=== PATIENT | male | born 1960 | race Caucasian/White ===

== ENCOUNTER 2017-01-28 11:59 | Inpatient (IN) | payer OTHER ==
[2017-01-28] MEDS ORDERED: LET GEL TOPICAL 1 EA SYR TP ONE ×3 (12:08→12:13)
[2017-01-28] MEDS ORDERED: fentaNYL 100 MCG/2 ML INJ ONE (12:08)
[2017-01-28] MEDS ORDERED: ONDANSETRON 4 MG/2 ML VIAL ONE (12:09)
[2017-01-28] MEDS ORDERED: IOPAMIDOL (ISOVUE-300) 100 ML BTL ONE (12:13)
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
[2017-01-28] MEDS ORDERED: fentaNYL 100 MCG/2 ML INJ IVP ONE ×2 (12:20→12:30)
[2017-01-28] MEDS ORDERED: ONDANSETRON 4 MG/2 ML VIAL IVP ONE (12:20)
[2017-01-28 12:22] LABS: % IMMATURE GRANULYOCYTES 0.7 % (0.0-1.1); ABSOLUTE IMMATURE GRANULOCYTES 0.05 10^3/uL (0.00-0.10); ADD DIFF? NO; ADD MORPH? NO; ADD SCAN? NO; ATYPICAL LYMPHOCYTE FLAG 20 (0-99); FRAGMENT RBC FLAG 0 (0-99); HEMATOCRIT 44.8 % (40.0-51.0); HEMOGLOBIN 15.2 g/dL (13.7-17.5); LEFT SHIFT FLG 0 (0-99); LIPEMIA HEMOLYSIS FLAG 90 (0-99); MEAN CELL HEMOGLOBIN 31.4 pg (27.9-34.1); MEAN CELL HEMOGLOBIN CONCENTR. 33.9 g/dL (32.4-36.7); MEAN CELL VOLUME 92.6 fL (81.5-99.8); MEAN PLATELET VOLUME 9.4 fL (8.7-11.7); PLATELET CLUMPS FLAG 10 (0-99); PLATELET COUNT 270 10^3/uL (150-400); RED BLOOD CELL COUNT 4.84 10^6/uL (4.40-6.38); RED CELL DISTRIBUTION WIDTH 11.9 % (11.5-15.2)
[2017-01-28 12:36] LABS: ANION GAP 23 mEq/L (8-16); CALCIUM 9.4 mg/dL (8.5-10.4); CARBON DIOXIDE 13 mEq/l (22-31); CHLORIDE 105 mEq/L (97-110); CREATININE 1.1 mg/dL (0.7-1.3); GLOMERULAR FILTRATION RATE > 60; GLUCOSE 140 mg/dL (70-100); INR 1.03 (0.83-1.16); POTASSIUM 4.1 mEq/L (3.5-5.2); PROTIME(PATIENT) 13.4 SEC (12.0-15.0); SODIUM 141 mEq/L (134-144)
[2017-01-28 12:37] LABS: APTT 24.9 SEC (23.0-38.0)
[2017-01-28] MEDS ORDERED: ceFAZolin 2 GM in NS 100 ML IV ONE (13:26)
[2017-01-28] MEDS ORDERED: DIPH,PERTUSS(ACELL),TET PED/PF 0.5 ML VIAL IM ONE (13:27)
[2017-01-28] MEDS ORDERED: PANTOPRAZOLE SODIUM 40 MG in NS 100 ML IV ONE (13:27)
[2017-01-28] MEDS ORDERED: ONDANSETRON 4 MG/2 ML VIAL IVP PRN (13:40)
[2017-01-28] MEDS ORDERED: HYDROmorphONE/DILAUDID 1 MG/ML SYR IVP ONE (13:40)
[2017-01-28] MEDS ORDERED: NALOXONE HCL 0.4 MG/ML INJ IVP PRN (13:40)
[2017-01-28] MEDS ORDERED: LR 1,000 ML IV SCH (14:00)
[2017-01-28] MEDS ORDERED: TDAP ADULT 0.5 ML INJ (BOOSTRIX) IM ONE ×2 (14:02→14:10)
[2017-01-28] MEDS ORDERED: HYDROmorphONE/DILAUDID 1 MG/ML SYR ONE (14:10)
[2017-01-28] MEDS: HYDROmorphONE/DILAUDID 1 MG/ML SYR IVP PRN ×3 (14:17→20:27)
[2017-01-28] MEDS: ceFAZolin 2 GM/DEXTROSE 100 ML IV SCH ×2 (15:06→23:27)
[2017-01-28] MEDS: BACITRACIN/POLYMYXIN B SULFATE 28.3 GM TUBE TP SCH (16:35)
[2017-01-28] MEDS: LIDOCAINE 5% 1 EA PATCH TD SCH (16:37)
[2017-01-28] MEDS: ACETAMINOPHEN 500 MG TAB PO SCH ×2 (16:37→21:22)
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
[2017-01-28] MEDS ORDERED: LIDOCAINE 2% JELLY 20 ML (UROJECT) ONE (17:50)
[2017-01-28] MEDS ORDERED: LIDOCAINE 2% JELLY 20 ML (UROJECT) UR ONE (18:15)
[2017-01-28] MEDS: CYCLOBENZAPRINE 10 MG TAB PO PRN (18:27)
[2017-01-28 18:30] LABS: COLOR YELLOW; LEUKOCYTE ESTERASE,URINE NEGATIVE (NEGATIVE); NITRITE,URINE NEGATIVE (NEGATIVE)
[2017-01-28] MEDS ORDERED: NS BOLUS 500 ML (Wide open) IV ONE (18:30)
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
[2017-01-28] MEDS: HYDROmorphONE/DILAUDID 2 MG TAB PO PRN (23:29)
[2017-01-29] MEDS ORDERED: NS BOLUS 500 ML (Wide open) IV ONE (01:41)
[2017-01-29] MEDS: HYDROmorphONE/DILAUDID 2 MG TAB PO PRN ×4 (03:43→19:27)
[2017-01-29] MEDS: HYDROmorphONE/DILAUDID 1 MG/ML SYR IVP PRN ×2 (06:02→10:26)
[2017-01-29] MEDS: BACITRACIN/POLYMYXIN B SULFATE 28.3 GM TUBE TP SCH ×3 (06:02→15:53)
[2017-01-29] MEDS: ceFAZolin 2 GM/DEXTROSE 100 ML IV SCH (06:04)
[2017-01-29] MEDS: ACETAMINOPHEN 500 MG TAB PO SCH ×2 (06:04→14:20)
[2017-01-29 06:17] LABS: ANION GAP 4 mEq/L (8-16); CALCIUM 8.3 mg/dL (8.5-10.4); CARBON DIOXIDE 27 mEq/l (22-31); CHLORIDE 105 mEq/L (97-110); CREATININE 0.8 mg/dL (0.7-1.3); GLOMERULAR FILTRATION RATE > 60; GLUCOSE 107 mg/dL (70-100); POTASSIUM 4.4 mEq/L (3.5-5.2); SODIUM 136 mEq/L (134-144)
[2017-01-29] MEDS: PATCH REMOVAL 1 EA PATCH TD SCH (06:57)
[2017-01-29] MEDS: LIDOCAINE 5% 1 EA PATCH TD SCH (08:39)
[2017-01-29] MEDS: CYCLOBENZAPRINE 10 MG TAB PO PRN ×2 (09:29→20:06)
[2017-01-29 11:31] LABS: HEMOGLOBIN 12.1 g/dL (13.7-17.5)
--- NOTE | 2017-01-29 15:27 | WOCRNPDOC ---
WOCRN Advanced Assessment Note - Skin Integrity Problem, Advanced Assess Bilateral Abrasions Dressing Type: Adaptic Touch, Kerlix, Other Other Dressing Type: antibiotic ointment Dressing Description: Shadowed Exudate Amount: Minimal Exudate Color: Red, Reddish/Yellow Exudate Characteristic(s): Serosanguinous Integumentary Issue Intervention: Dressing Changed (Cavilon prep, Adaptic Touch , non-bordered foam or Mepilex Transfer foam, kerlix or michael), Dressing Initialed & Dated, Silver Gel Applied Leola Wound Tissue: Erythema, Raw Leola Wound Swelling: None Wound Bed Color: Red Wound Bed Constitution: Smooth Tissue Wound Edges: Attached, Irregular Site Odor: None Site Measurement - Head-to-Toe Length X Width X Depth (cm): multiple abrasions, ranging from 1 cm yash x 0.1, up to 18 x 15 x 0.3 Skin Integrity Problem Comment: Partial-thickness abrasions are distributed across bilateral surfaces, from forehead to knees, with the largest contiguous sites presenting at the left shoulder, left forearm, left flank, and left hip. Working with EMELY Wilburn, all sites were cleansed with sterile NS and gauze; dressings were applied as described above and in orders. RN reports that ICU staff can manage care at this point. Please re-consult Wound Care Team if needed.
[2017-01-29] MEDS: CALCIUM CARBONATE 500 MG CHEWABLE TAB PO SCH (16:06)
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
[2017-01-29] MEDS ORDERED: BISACODYL 10 MG SUPP PR PRN (18:31)
[2017-01-29] MEDS ORDERED: LACTULOSE 20 GM/30 ML UDCUP PO PRN (18:31)
[2017-01-29] MEDS ORDERED: MAGNESIUM HYDROXIDE 30 ML UDCUP PO PRN (18:31)
[2017-01-29] MEDS ORDERED: POLYETHYLENE GLYCOL 3350 17 GM PKT PO PRN (18:31)
[2017-01-29] MEDS: FAMOTIDINE 20 MG TAB PO SCH (20:06)
[2017-01-29] MEDS: SENNOSIDES/DOCUSATE SODIUM TAB PO SCH (20:06)
[2017-01-30] MEDS: HYDROmorphONE/DILAUDID 2 MG TAB PO PRN ×4 (00:20→18:33)
[2017-01-30] MEDS: PATCH REMOVAL 1 EA PATCH TD SCH (00:21)
[2017-01-30] MEDS: ACETAMINOPHEN 500 MG TAB PO SCH ×4 (03:33→21:05)
[2017-01-30] MEDS: CYCLOBENZAPRINE 10 MG TAB PO PRN ×2 (04:43→18:33)
[2017-01-30] MEDS: HYDROmorphONE/DILAUDID 1 MG/ML SYR IVP PRN ×2 (04:58→11:43)
[2017-01-30 05:26] LABS: % IMMATURE GRANULYOCYTES 0.4 % (0.0-1.1); ABSOLUTE IMMATURE GRANULOCYTES 0.03 10^3/uL (0.00-0.10); ADD DIFF? NO; ADD MORPH? NO; ADD SCAN? NO; ATYPICAL LYMPHOCYTE FLAG 0 (0-99); FRAGMENT RBC FLAG 0 (0-99); HEMATOCRIT 32.6 % (40.0-51.0); HEMOGLOBIN 11.1 g/dL (13.7-17.5); LEFT SHIFT FLG 0 (0-99); LIPEMIA HEMOLYSIS FLAG 90 (0-99); MEAN CELL HEMOGLOBIN 31.4 pg (27.9-34.1); MEAN CELL VOLUME 92.1 fL (81.5-99.8); MEAN PLATELET VOLUME 9.5 fL (8.7-11.7); PLATELET CLUMPS FLAG 0 (0-99); PLATELET COUNT 151 10^3/uL (150-400); RED BLOOD CELL COUNT 3.54 10^6/uL (4.40-6.38); RED CELL DISTRIBUTION WIDTH 11.9 % (11.5-15.2)
[2017-01-30 05:48] LABS: ANION GAP 5 mEq/L (8-16); CALCIUM 8.5 mg/dL (8.5-10.4); CARBON DIOXIDE 30 mEq/l (22-31); CHLORIDE 99 mEq/L (97-110); CREATININE 0.8 mg/dL (0.7-1.3); GLOMERULAR FILTRATION RATE > 60; GLUCOSE 118 mg/dL (70-100); MAGNESIUM 1.9 mg/dL (1.6-2.3); POTASSIUM 4.2 mEq/L (3.5-5.2); SODIUM 134 mEq/L (134-144)
--- NOTE | 2017-01-30 08:21 | TRAUMAPN ---
Assessment/Plan: PAD#2 01/30/2017 Assessment: Chest wall pain continues to be an issue in spite of tylenol, flexeril, lidoderm patch, and po/IV dilaudid. CXR with increasing haziness on left. He does have a large pulmonary contusion but I suspect an increasing hemothorax. Tolerating CPAP over night and only requiring O2 by nasal canula. IS to only 750cc He does have rib fractures and flail segments as follows: Anterior Lateral Posterior Flail Flail blocked/stabilized by scapula 1 X 2 X X X X 3 X X X X 4 X X X X 5 X X X X 6 X X X +/- 7 X 8 X 9 X X X He may not need rib fixation as the scapula will tend to stabilize most of the fractures. I will re-assess Chen placed yesterday for retention Hypoactive bowel sounds NOTE: C-spine was cleared in ER based on CT and exam by me. Plan: 1) anesthesia consult re: epidural vs paravertebral cath to augment pain control 2) Follow up chest CT 3) Continue pulmonary toilet 4) Continue chen x 24 hours 5) Address bowel function Subjective: " my ribs kept me up last night" Objective: Vital Signs Temp Pulse Resp BP Pulse Ox 37.0 C 57 L 18 105/60 98 01/29/17 20:00 01/30/17 06:00 01/30/17 06:00 01/30/17 06:00 01/30/17 06:00 Laboratory Results 01/30/17 04:55 01/30/17 04:55 01/29/17 01/30/17 01/31/17 05:59 05:59 05:59 Intake Total 3667 1500 500 Output Total 1175 1730 255 Balance 2492 -230 245 PT 13.4 SEC (12.0-15.0) 01/28/17 12:00 INR 1.03 (0.83-1.16) 01/28/17 12:00 - C-Spine Clearance Cervical Spine Cleared: Yes Provider who Cleared Cervical Spine: Manoj Physical Exam - Physical Exam General Appearance: WD/WN, alert, moderate distress Neck: non-tender, full range of motion, supple, normal inspection Respiratory: lungs clear, decreased breath sounds, pain on movement Cardiac/Chest: regular rate, rhythm Abdomen: non-tender, soft, other (no bowel sounds) Male Genitalia: deferred Rectal: deferred Back: Normal inspection Skin: other (There are multiple abrasions detailed in H&P as well as a left suptaorbital laceration) Extremities: normal inspection Neuro/Psych: no motor/sensory deficits, alert, normal mood/affect, oriented x 3 Time Spent w/Patient (minutes): 45
[2017-01-30] MEDS: LIDOCAINE 5% 1 EA PATCH TD SCH (08:30)
[2017-01-30] MEDS: SENNOSIDES/DOCUSATE SODIUM TAB PO SCH ×2 (08:31→21:05)
[2017-01-30] MEDS: FAMOTIDINE 20 MG TAB PO SCH ×2 (08:31→21:05)
[2017-01-30] MEDS: CALCIUM CARBONATE 500 MG CHEWABLE TAB PO SCH (08:32)
--- NOTE | 2017-01-30 10:48 | SOAPPROG ---
SOAP Progress Note Assessment/Plan: Assessment: Plan: Subjective: states his ribs hurt more than his hip or his shoulder remains NVI in LUE and LLE neg pain to log roll cont TDWB on LLE will need Xray of hip and shoulder in approx one week, either in house or in office signing off for now. If further or new questions call [facility] physician on-call Objective: Vital Signs Temp Pulse Resp BP Pulse Ox 37.0 C 57 L 18 105/60 98 01/29/17 20:00 01/30/17 06:00 01/30/17 06:00 01/30/17 06:00 01/30/17 06:00 Laboratory Results 01/30/17 04:55 01/30/17 04:55 01/29/17 01/30/17 01/31/17 05:59 05:59 05:59 Intake Total 3667 1500 500 Output Total 1175 1730 255 Balance 2492 -230 245 PT 13.4 SEC (12.0-15.0) 01/28/17 12:00 INR 1.03 (0.83-1.16) 01/28/17 12:00 ICD10 Worksheet Patient Problems: Problems Problem Status Onset Abrasion Acute Femur fracture, left Acute Flail chest Acute Hemothorax on left Acute Pneumothorax Acute Ribs, multiple fractures Acute Scalp laceration Acute
[2017-01-30] MEDS ORDERED: PHENYLEPHRINE HCL 100 MCG/ML SYR IVP PRN (11:36)
[2017-01-30] MEDS: fentaNYL 2MCG/ML/BUP 0.1% RTU 100 ML EP SCH ×2 (12:03→22:29)
[2017-01-30] MEDS ORDERED: NALOXONE HCL 0.4 MG/ML INJ IVP PRN (12:23)
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
[2017-01-30 17:08] LABS: HEMATOCRIT 31.1 % (40.0-51.0); HEMOGLOBIN 10.7 g/dL (13.7-17.5)
[2017-01-30] MEDS ORDERED: LIDOCAINE 1% 300 MG/30 ML SDV ONE (17:19)
[2017-01-30] MEDS ORDERED: BUPIVACAINE 0.25% 30 ML SDV MISC ONE (17:30)
[2017-01-30] MEDS ORDERED: LIDOCAINE 1% 300 MG/30 ML SDV IV ONE (17:45)
--- NOTE | 2017-01-30 17:49 | POSTOPPROG ---
Post Op Note Date of Operation: 01/30/17 Surgeon: Edgardo Aranda Anesthesia: Local (Specify) Pre-op Diagnosis: left hemopneumothorax Post-op Diagnosis: same Indication: same Procedure: 32Fr left chest tube placement Findings: 400 cc blood/pneomothorax Inf/Abcess present in the surg proc area at time of surgery?: No EBL: 100-500 (pleural blood) Complications: none
[2017-01-30] MEDS: MULTIVITAMINS W-MINERALS 1 EACH TAB PO SCH (18:47)
--- NOTE | 2017-01-30 18:53 | GOP ---
[f rep st] OPERATIVE REPORT DATE OF OPERATION: 01/30/2017 SURGEON: Edgardo Aranda MD ANESTHESIA: Local. PREOPERATIVE DIAGNOSIS: Left hemopneumothorax. POSTOPERATIVE DIAGNOSIS: Left hemopneumothorax. PROCEDURE PERFORMED: FINDINGS: 400 cc of blood in left chest and pneumothorax. INDICATIONS: Left hemopneumothorax. DESCRIPTION OF PROCEDURE: The patient was placed in the right lateral position. A surgical time-ou t was carried out and agreed to by those present. Chest was carefully prepped with ChloraPrep. Draping was carried out. At approximately the 7th rib , the skin was anesthetized over the rib. Periosteal anesthesia was obtained and intercostal analge angie obtained. Note is made that he does have an epidural anesthetic at this time. The skin was sharply incised. A careful dissection was carried out using a spreading technique over the top of the rib. The chest was entered easily. The 32-Macedonian chest tube was directed posterior ly and superiorly and sutured in place with 2-0 silk. The chest tube site was well dressed. The [facility] x-ray is pending. /[id number]/MODL
[2017-01-31] MEDS: HYDROmorphONE/DILAUDID 2 MG TAB PO PRN ×4 (00:27→16:48)
[2017-01-31] MEDS: CYCLOBENZAPRINE 10 MG TAB PO PRN ×2 (04:42→16:48)
[2017-01-31] MEDS: PATCH REMOVAL 1 EA PATCH TD SCH (04:43)
[2017-01-31 05:34] LABS: % IMMATURE GRANULYOCYTES 0.3 % (0.0-1.1); ABSOLUTE IMMATURE GRANULOCYTES 0.02 10^3/uL (0.00-0.10); ADD DIFF? NO; ADD MORPH? NO; ADD SCAN? NO; ATYPICAL LYMPHOCYTE FLAG 0 (0-99); FRAGMENT RBC FLAG 0 (0-99); HEMATOCRIT 32.2 % (40.0-51.0); LEFT SHIFT FLG 0 (0-99); LIPEMIA HEMOLYSIS FLAG 90 (0-99); MEAN CELL HEMOGLOBIN 31.8 pg (27.9-34.1); MEAN CELL HEMOGLOBIN CONCENTR. 34.2 g/dL (32.4-36.7); MEAN CELL VOLUME 93.1 fL (81.5-99.8); MEAN PLATELET VOLUME 9.4 fL (8.7-11.7); PLATELET CLUMPS FLAG 20 (0-99); PLATELET COUNT 142 10^3/uL (150-400); RED BLOOD CELL COUNT 3.46 10^6/uL (4.40-6.38); RED CELL DISTRIBUTION WIDTH 11.7 % (11.5-15.2)
[2017-01-31 05:48] LABS: ALANINE AMINOTRANSFERASE 41 IU/L (21-72); ALKALINE PHOSPHATASE 40 IU/L (38-126); ANION GAP 7 mEq/L (8-16); ASPARTATE AMINOTRANSFERASE 41 IU/L (17-59); BILIRUBIN,TOTAL 0.5 mg/dL (0.1-1.4); CALCIUM 8.5 mg/dL (8.5-10.4); CARBON DIOXIDE 29 mEq/l (22-31); CHLORIDE 98 mEq/L (97-110); CREATININE 0.8 mg/dL (0.7-1.3); GLOMERULAR FILTRATION RATE > 60; GLUCOSE 107 mg/dL (70-100); SODIUM 134 mEq/L (134-144); TOTAL PROTEIN 5.4 g/dL (6.3-8.2)
[2017-01-31] MEDS: ACETAMINOPHEN 500 MG TAB PO SCH ×3 (06:09→21:06)
[2017-01-31] MEDS: FAMOTIDINE 20 MG TAB PO SCH ×2 (08:57→21:06)
[2017-01-31] MEDS: CALCIUM CARBONATE 500 MG CHEWABLE TAB PO SCH (08:58)
[2017-01-31] MEDS: MULTIVITAMINS W-MINERALS 1 EACH TAB PO SCH (08:58)
[2017-01-31] MEDS: SENNOSIDES/DOCUSATE SODIUM TAB PO SCH ×2 (08:58→21:06)
[2017-01-31] MEDS: LIDOCAINE 5% 1 EA PATCH TD SCH (08:59)
[2017-01-31] MEDS: REGARDING ANTICOAG MISC SCH (09:01)
[2017-01-31] MEDS: DC NARCS MISC SCH (09:01)
[2017-01-31] MEDS: fentaNYL 2MCG/ML/BUP 0.1% RTU 100 ML EP SCH ×2 (09:58→18:56)
--- NOTE | 2017-01-31 10:38 | TRAUMAPN ---
Assessment/Plan: PAD#2 01/30/2017 Assessment: Chest wall pain continues to be an issue in spite of tylenol, flexeril, lidoderm patch, and po/IV dilaudid. CXR with increasing haziness on left. He does have a large pulmonary contusion but I suspect an increasing hemothorax. Tolerating CPAP over night and only requiring O2 by nasal canula. IS to only 750cc He does have rib fractures and flail segments as follows: Anterior Lateral Posterior Flail Flail blocked/stabilized by scapula 1 X 2 X X X X 3 X X X X 4 X X X X 5 X X X X 6 X X X +/- 7 X 8 X 9 X X X He may not need rib fixation as the scapula will tend to stabilize most of the fractures. I will re-assess Chen placed yesterday for retention Hypoactive bowel sounds NOTE: C-spine was cleared in ER based on CT and exam by me. Plan: 1) anesthesia consult re: epidural vs paravertebral cath to augment pain control 2) Follow up chest CT 3) Continue pulmonary toilet 4) Continue chen x 24 hours 5) Address bowel function PAD#3 01/31/2017 Assessment: Chest wall pain: Improved after epidural. ( will need to continue Chen while Epidural in place) CXR improved - chest tube placed last PM - still has organizing pulmonary contusion. IS to 1200. will continue CPAP at night Nutrition - oral intake improving DVT prophylaxis - Lovenox restarted today, SCDS used. Plan: Continue supportive care Continue chest tube Not yet ready for LTAC due to Chest tube, Pulmonary contusion, rib fractures and Epidural catheter Subjective: "I'm feeling better" Objective: Vital Signs Temp Pulse Resp BP Pulse Ox 36.5 C 59 L 14 106/65 98 01/31/17 08:00 01/31/17 08:00 01/31/17 08:00 01/31/17 08:00 01/31/17 08:00 Laboratory Results 01/31/17 05:00 01/31/17 05:00 01/30/17 01/31/17 02/01/17 05:59 05:59 05:59 Intake Total 1500 2792.6 750 Output Total 1730 2635 Balance -230 157.6 750 PT 13.4 SEC (12.0-15.0) 01/28/17 12:00 INR 1.03 (0.83-1.16) 01/28/17 12:00 - C-Spine Clearance Cervical Spine Cleared: Yes Provider who Cleared Cervical Spine: Manoj Physical Exam - Physical Exam General Appearance: WD/WN, alert, mild distress Neck: full range of motion, supple, normal inspection Respiratory: normal breath sounds, other (chest wall tender on left - E to A changes in Left Base) Cardiac/Chest: regular rate, rhythm Abdomen: non-tender, soft, other (Hypoactive bowel sounds) Male Genitalia: deferred Rectal: deferred Skin: other (Multiple abrasions - slowly healing) Extremities: other (Did walk with assistance (2) to door of room and back) Neuro/Psych: no motor/sensory deficits, alert, normal mood/affect, oriented x 3 Time Spent w/Patient (minutes): 30
[2017-01-31] MEDS ORDERED: ENOXAPARIN 30 MG/0.3 ML SYR SC SCH (11:15)
[2017-01-31] MEDS: HEPARIN 5,000 UNIT/0.5 ML SYR SC SCH ×2 (13:15→21:06)
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
--- NOTE | 2017-01-31 14:43 | SOAPPROG ---
SOAP Progress Note Assessment/Plan: Assessment: Doing ok. Would like to see patient more awake during the day to work with therapy. Plan: I will decrease demand bolus to 5cc Q20min PRN. Continue 8cc/hr basal rate. Heparin BID for DVT prophylaxis. Plan to begin to titrating basal rate tomorrow. May be reasonable to increase PO Dilaudid at that time. Continue APAP and agree with Lidoderm patches. Toradol contraindicated. Query whether cyclobenzaprine is necessary? Thank you for the consult. Will continue to follow. 01/30/17 12:49 01/31/17 14:39 Subjective: Patient seen and examined on the floor. Patient endorses some "sleepiness"- worse since the epidural. Pain is improved. No evidence for LA toxicity, no ringing in the ears, etc. Objective: Vital Signs Temp Pulse Resp BP Pulse Ox 36.6 C 60 18 106/66 98 01/31/17 12:00 01/31/17 14:00 01/31/17 14:00 01/31/17 14:00 01/31/17 14:00 Laboratory Results 01/31/17 05:00 01/31/17 05:00 01/30/17 01/31/17 02/01/17 05:59 05:59 05:59 Intake Total 1500 2792.6 1250 Output Total 1730 2635 Balance -230 157.6 1250 PT 13.4 SEC (12.0-15.0) 01/28/17 12:00 INR 1.03 (0.83-1.16) 01/28/17 12:00 Current epidural settings; bupivacaine 0.1% + fentanyl 2mcg/ml 8cc/hr + 10cc Q20 min bolus PRN. ICD10 Worksheet Patient Problems: Problems Problem Status Onset Abrasion Acute Femur fracture, left Acute Flail chest Acute Hemothorax on left Acute Pneumothorax Acute Ribs, multiple fractures Acute Scalp laceration Acute
[2017-02-01] MEDS: PATCH REMOVAL 1 EA PATCH TD SCH ×2 (00:28→22:26)
[2017-02-01] MEDS: fentaNYL 2MCG/ML/BUP 0.1% RTU 100 ML EP SCH ×3 (05:18→22:55)
[2017-02-01] MEDS: ACETAMINOPHEN 500 MG TAB PO SCH ×3 (05:19→22:23)
[2017-02-01] MEDS: HEPARIN 5,000 UNIT/0.5 ML SYR SC SCH ×3 (05:19→22:23)
[2017-02-01 06:10] LABS: ABSOLUTE IMMATURE GRANULOCYTES 0.05 10^3/uL (0.00-0.10); ADD DIFF? NO; ADD MORPH? NO; ADD SCAN? NO; ATYPICAL LYMPHOCYTE FLAG 0 (0-99); FRAGMENT RBC FLAG 0 (0-99); HEMATOCRIT 31.5 % (40.0-51.0); HEMOGLOBIN 10.9 g/dL (13.7-17.5); LEFT SHIFT FLG 10 (0-99); LIPEMIA HEMOLYSIS FLAG 90 (0-99); MEAN CELL HEMOGLOBIN 32.2 pg (27.9-34.1); MEAN CELL HEMOGLOBIN CONCENTR. 34.6 g/dL (32.4-36.7); MEAN CELL VOLUME 92.9 fL (81.5-99.8); MEAN PLATELET VOLUME 9.1 fL (8.7-11.7); PLATELET CLUMPS FLAG 0 (0-99); PLATELET COUNT 160 10^3/uL (150-400); RED BLOOD CELL COUNT 3.39 10^6/uL (4.40-6.38); RED CELL DISTRIBUTION WIDTH 11.6 % (11.5-15.2)
[2017-02-01] MEDS: SENNOSIDES/DOCUSATE SODIUM TAB PO SCH ×2 (08:17→22:23)
[2017-02-01] MEDS: MULTIVITAMINS W-MINERALS 1 EACH TAB PO SCH (08:18)
[2017-02-01] MEDS: FAMOTIDINE 20 MG TAB PO SCH ×2 (08:18→22:24)
[2017-02-01] MEDS: LIDOCAINE 5% 1 EA PATCH TD SCH (08:18)
[2017-02-01] MEDS: CALCIUM CARBONATE 500 MG CHEWABLE TAB PO SCH (08:18)
[2017-02-01] MEDS: DC NARCS MISC SCH (09:05)
[2017-02-01] MEDS: REGARDING ANTICOAG MISC SCH (09:05)
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
--- NOTE | 2017-02-01 17:52 | SOAPPROG ---
SOAP Progress Note Assessment/Plan: Assessment: Doing ok. Pain 4/10 at rest. Worse with movement. Unchanged from yesterday. Plan: I will decrea basal rate to 6cc/hr. Heparin BID for DVT prophylaxis. Continue APAP and agree with Lidoderm patches. Toradol contraindicated. Thank you for the consult. Will continue to follow. 01/30/17 12:49 01/31/17 14:39 02/01/17 17:49 Subjective: Patient seen and examined on the floor. Continuous epidural day #2 for rib fractures. Pain overall is stable, seems more awake today. Objective: Vital Signs Temp Pulse Resp BP Pulse Ox 36.8 C 69 26 H 116/70 96 02/01/17 15:51 02/01/17 15:51 02/01/17 14:00 02/01/17 15:51 02/01/17 15:51 Laboratory Results 02/01/17 05:50 01/31/17 05:00 01/31/17 02/01/17 02/02/17 05:59 05:59 05:59 Intake Total 2792.6 2350 Output Total 2635 1850 Balance 157.6 500 PT 13.4 SEC (12.0-15.0) 01/28/17 12:00 INR 1.03 (0.83-1.16) 01/28/17 12:00 ICD10 Worksheet Patient Problems: Problems Problem Status Onset Abrasion Acute Femur fracture, left Acute Flail chest Acute Hemothorax on left Acute Pneumothorax Acute Ribs, multiple fractures Acute Scalp laceration Acute
[2017-02-01] MEDS: HYDROmorphONE/DILAUDID 2 MG TAB PO PRN (22:24)
[2017-02-02] MEDS: HEPARIN 5,000 UNIT/0.5 ML SYR SC SCH ×3 (06:29→21:18)
[2017-02-02] MEDS: ACETAMINOPHEN 500 MG TAB PO SCH ×3 (06:29→21:18)
[2017-02-02 06:42] LABS: ABSOLUTE IMMATURE GRANULOCYTES 0.05 10^3/uL (0.00-0.10); ADD DIFF? NO; ADD MORPH? NO; ADD SCAN? NO; ATYPICAL LYMPHOCYTE FLAG 0 (0-99); FRAGMENT RBC FLAG 0 (0-99); HEMATOCRIT 33.7 % (40.0-51.0); HEMOGLOBIN 11.5 g/dL (13.7-17.5); LEFT SHIFT FLG 20 (0-99); LIPEMIA HEMOLYSIS FLAG 90 (0-99); MEAN CELL HEMOGLOBIN 31.3 pg (27.9-34.1); MEAN CELL HEMOGLOBIN CONCENTR. 34.1 g/dL (32.4-36.7); MEAN CELL VOLUME 91.6 fL (81.5-99.8); MEAN PLATELET VOLUME 8.5 fL (8.7-11.7); PLATELET CLUMPS FLAG 0 (0-99); PLATELET COUNT 183 10^3/uL (150-400); RED BLOOD CELL COUNT 3.68 10^6/uL (4.40-6.38); RED CELL DISTRIBUTION WIDTH 11.6 % (11.5-15.2)
[2017-02-02] MEDS: MULTIVITAMINS W-MINERALS 1 EACH TAB PO SCH (07:56)
[2017-02-02] MEDS: SENNOSIDES/DOCUSATE SODIUM TAB PO SCH ×2 (07:56→21:18)
[2017-02-02] MEDS: FAMOTIDINE 20 MG TAB PO SCH ×2 (07:56→21:17)
[2017-02-02] MEDS: CALCIUM CARBONATE 500 MG CHEWABLE TAB PO SCH (07:57)
[2017-02-02] MEDS: LIDOCAINE 5% 1 EA PATCH TD SCH (07:59)
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
[2017-02-02] MEDS: fentaNYL 2MCG/ML/BUP 0.1% RTU 100 ML EP SCH (11:55)
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
[2017-02-02] MEDS: REGARDING ANTICOAG MISC SCH (16:15)
[2017-02-02] MEDS: DC NARCS MISC SCH (16:15)
[2017-02-02] MEDS: HYDROmorphONE/DILAUDID 2 MG TAB PO PRN (21:18)
[2017-02-02] MEDS: PATCH REMOVAL 1 EA PATCH TD SCH (21:18)
[2017-02-03] MEDS: ACETAMINOPHEN 500 MG TAB PO SCH ×3 (05:52→20:43)
[2017-02-03] MEDS: HEPARIN 5,000 UNIT/0.5 ML SYR SC SCH ×3 (05:53→20:44)
[2017-02-03] MEDS: LIDOCAINE 5% 1 EA PATCH TD SCH (07:30)
[2017-02-03] MEDS: MULTIVITAMINS W-MINERALS 1 EACH TAB PO SCH (07:31)
[2017-02-03] MEDS: SENNOSIDES/DOCUSATE SODIUM TAB PO SCH ×2 (07:31→20:43)
[2017-02-03] MEDS: CALCIUM CARBONATE 500 MG CHEWABLE TAB PO SCH (07:31)
[2017-02-03] MEDS: FAMOTIDINE 20 MG TAB PO SCH ×2 (07:31→20:42)
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
[2017-02-03] MEDS: fentaNYL 2MCG/ML/BUP 0.1% RTU 100 ML EP SCH (15:03)
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
--- NOTE | 2017-02-03 17:19 | SOAPPROG ---
Downtime Inpatient MD Late Entry SOAP Note: repeat CXR shows slight improvement in the left apical pneumothorax and stable tube position. Will continue CT suction for now. Phong Montilla MD, FACS
[2017-02-03] MEDS: REGARDING ANTICOAG MISC SCH (23:19)
[2017-02-03] MEDS: DC NARCS MISC SCH (23:19)
[2017-02-03] MEDS: PATCH REMOVAL 1 EA PATCH TD SCH (23:49)
[2017-02-04] MEDS: ACETAMINOPHEN 500 MG TAB PO SCH ×3 (06:09→20:36)
[2017-02-04] MEDS: HEPARIN 5,000 UNIT/0.5 ML SYR SC SCH ×3 (06:10→20:37)
[2017-02-04] MEDS: fentaNYL 2MCG/ML/BUP 0.1% RTU 100 ML EP SCH (06:18)
[2017-02-04] MEDS: FAMOTIDINE 20 MG TAB PO SCH ×2 (09:35→20:37)
[2017-02-04] MEDS: DC NARCS MISC SCH (09:35)
[2017-02-04] MEDS: REGARDING ANTICOAG MISC SCH (09:35)
[2017-02-04] MEDS: MULTIVITAMINS W-MINERALS 1 EACH TAB PO SCH (09:35)
[2017-02-04] MEDS: CALCIUM CARBONATE 500 MG CHEWABLE TAB PO SCH (09:39)
[2017-02-04] MEDS: LIDOCAINE 5% 1 EA PATCH TD SCH (09:39)
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
[2017-02-04] MEDS: SENNOSIDES/DOCUSATE SODIUM TAB PO SCH ×2 (09:46→20:37)
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
[2017-02-04] MEDS: HYDROmorphONE/DILAUDID 2 MG TAB PO PRN ×3 (12:28→20:37)
[2017-02-04] MEDS: CYCLOBENZAPRINE 10 MG TAB PO PRN (16:42)
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
[2017-02-05] MEDS: PATCH REMOVAL 1 EA PATCH TD SCH ×2 (01:12→21:02)
[2017-02-05] MEDS: HYDROmorphONE/DILAUDID 2 MG TAB PO PRN ×3 (04:39→12:52)
[2017-02-05] MEDS: ACETAMINOPHEN 500 MG TAB PO SCH ×3 (05:49→21:01)
[2017-02-05] MEDS: HEPARIN 5,000 UNIT/0.5 ML SYR SC SCH ×3 (05:50→21:01)
[2017-02-05] MEDS: CALCIUM CARBONATE 500 MG CHEWABLE TAB PO SCH (08:50)
[2017-02-05] MEDS: FAMOTIDINE 20 MG TAB PO SCH ×2 (08:50→21:01)
[2017-02-05] MEDS: MULTIVITAMINS W-MINERALS 1 EACH TAB PO SCH (08:50)
[2017-02-05] MEDS: SENNOSIDES/DOCUSATE SODIUM TAB PO SCH ×2 (08:51→21:01)
[2017-02-05] MEDS: LIDOCAINE 5% 1 EA PATCH TD SCH (08:52)
[2017-02-05] MEDS: CYCLOBENZAPRINE 10 MG TAB PO PRN (11:31)
[2017-02-05] MEDS ORDERED: oxyCODONE IR 5 MG TAB PO PRN (14:46)
[2017-02-05] MEDS: oxyCODONE IR 5 MG TAB PO PRN ×2 (16:14→19:57)
[2017-02-05] MEDS: DC NARCS MISC SCH (16:23)
[2017-02-05] MEDS: REGARDING ANTICOAG MISC SCH (16:24)
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
[2017-02-06] MEDS: oxyCODONE IR 5 MG TAB PO PRN ×5 (02:24→19:56)
[2017-02-06] MEDS: ACETAMINOPHEN 500 MG TAB PO SCH ×3 (05:59→21:34)
[2017-02-06] MEDS: CALCIUM CARBONATE 500 MG CHEWABLE TAB PO SCH (08:38)
[2017-02-06] MEDS: HEPARIN 5,000 UNIT/0.5 ML SYR SC SCH ×3 (08:38→21:35)
[2017-02-06] MEDS: MULTIVITAMINS W-MINERALS 1 EACH TAB PO SCH (08:38)
[2017-02-06] MEDS: SENNOSIDES/DOCUSATE SODIUM TAB PO SCH ×2 (08:38→21:35)
[2017-02-06] MEDS: FAMOTIDINE 20 MG TAB PO SCH ×2 (08:38→21:34)
[2017-02-06] MEDS: LIDOCAINE 5% 1 EA PATCH TD SCH (08:45)
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
[2017-02-06] MEDS ORDERED: HYDROmorphONE/DILAUDID 2 MG TAB PO PRN (14:17)
[2017-02-06] MEDS: PATCH REMOVAL 1 EA PATCH TD SCH (21:36)
[2017-02-07] MEDS: oxyCODONE IR 5 MG TAB PO PRN ×4 (02:47→19:31)
[2017-02-07] MEDS: ACETAMINOPHEN 500 MG TAB PO SCH ×3 (06:11→22:15)
[2017-02-07] MEDS: HEPARIN 5,000 UNIT/0.5 ML SYR SC SCH ×3 (06:11→22:15)
[2017-02-07] MEDS: MULTIVITAMINS W-MINERALS 1 EACH TAB PO SCH (08:38)
[2017-02-07] MEDS: CALCIUM CARBONATE 500 MG CHEWABLE TAB PO SCH (08:39)
[2017-02-07] MEDS: SENNOSIDES/DOCUSATE SODIUM TAB PO SCH ×2 (08:39→20:32)
[2017-02-07] MEDS: FAMOTIDINE 20 MG TAB PO SCH ×2 (08:39→20:32)
[2017-02-07] MEDS: LIDOCAINE 5% 1 EA PATCH TD SCH (08:42)
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
[2017-02-07] MEDS: PATCH REMOVAL 1 EA PATCH TD SCH (22:15)
[2017-02-08] MEDS: CYCLOBENZAPRINE 10 MG TAB PO PRN (00:57)
[2017-02-08] MEDS: oxyCODONE IR 5 MG TAB PO PRN ×5 (00:57→19:59)
[2017-02-08] MEDS: ACETAMINOPHEN 500 MG TAB PO SCH ×3 (05:52→21:33)
[2017-02-08] MEDS: HEPARIN 5,000 UNIT/0.5 ML SYR SC SCH ×3 (05:53→21:33)
[2017-02-08] MEDS: SENNOSIDES/DOCUSATE SODIUM TAB PO SCH ×2 (08:32→21:33)
[2017-02-08] MEDS: FAMOTIDINE 20 MG TAB PO SCH ×2 (08:32→21:33)
[2017-02-08] MEDS: MULTIVITAMINS W-MINERALS 1 EACH TAB PO SCH (08:32)
[2017-02-08] MEDS: LIDOCAINE 5% 1 EA PATCH TD SCH (08:33)
[2017-02-08] MEDS: CALCIUM CARBONATE 500 MG CHEWABLE TAB PO SCH (08:34)
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
[2017-02-08] MEDS: PATCH REMOVAL 1 EA PATCH TD SCH (21:33)
[2017-02-09] MEDS: oxyCODONE IR 5 MG TAB PO PRN ×3 (00:30→13:54)
[2017-02-09] MEDS: ACETAMINOPHEN 500 MG TAB PO SCH ×2 (05:57→13:54)
[2017-02-09] MEDS: HEPARIN 5,000 UNIT/0.5 ML SYR SC SCH ×2 (05:57→13:55)
[2017-02-09 07:22] VITALS: O2SAT 94
[2017-02-09] MEDS: FAMOTIDINE 20 MG TAB PO SCH (07:40)
[2017-02-09] MEDS: MULTIVITAMINS W-MINERALS 1 EACH TAB PO SCH (07:40)
[2017-02-09] MEDS: LIDOCAINE 5% 1 EA PATCH TD SCH (07:40)
[2017-02-09] MEDS: SENNOSIDES/DOCUSATE SODIUM TAB PO SCH (07:40)
[2017-02-09] MEDS: CALCIUM CARBONATE 500 MG CHEWABLE TAB PO SCH (07:42)
[2017-02-09 12:14] VITALS: BP 114/74; PULSE 74; RESP 16; TEMP 98.1
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
== END 2017-02-09 15:16 | disposition home health service (06) | DRG 964 ==
LOC: EDBD 13:53 → F2N 15:42 → F3E 02-04 18:11
PROVIDERS: ADMIT Surgery; ATTEND Surgery
PROC: 0W9B30Z Drainage of Left Pleural Cavity with Drainage Device, Percutaneous Approach (ICD-10-PCS; principal; 2017-01-30)
PROC: 3E0S3CZ (ICD-10-PCS; 2017-01-30)
DX: S22.42XA Multiple fractures of ribs, left side, initial encounter for closed fracture (principal); D62 Acute posthemorrhagic anemia; S22.5XXA Flail chest, initial encounter for closed fracture; S27.2XXA Traumatic hemopneumothorax, initial encounter; S27.321A Contusion of lung, unilateral, initial encounter; S42.002A Fracture of unspecified part of left clavicle, initial encounter for closed fracture; S72.115A Nondisplaced fracture of greater trochanter of left femur, initial encounter for closed fracture; S42.145A Nondisplaced fracture of glenoid cavity of scapula, left shoulder, initial encounter for closed fracture; S01.112A Laceration without foreign body of left eyelid and periocular area, initial encounter; S42.302D Unspecified fracture of shaft of humerus, left arm, subsequent encounter for fracture with routine healing; V18.0XXA Pedal cycle driver injured in noncollision transport accident in nontraffic accident, initial encounter; Y93.55 Activity, bike riding
CPT/HCPCS: 82947-QW; 92507-GN; 92523-GN; 97110-GP; 97116-GP; 97162-GP; 97166-GO; 97530-GO; 97530-GP; 97535-GO; J0690; J1170; J2405; J3010; Q9967

== ENCOUNTER → 2017-04-20 | Outpatient (CLI) | payer OTHER | LOC: BRMIMAGING 13:46 | PROVIDERS: ATTEND Physician Assistant | DX: Z13.820 Encounter for screening for osteoporosis (principal); M25.552 Pain in left hip ==